=== PATIENT | male | born 1940 | race Caucasian/White ===

== ENCOUNTER 2017-04-04 01:47 | Inpatient (IN) | payer MEDICARE, MEDICAID ==
[~2017-04-04] VITALS: Ht 177.8 cm; Wt 84.7 kg
[~2017-04-04 01:47] MED LIST: AMIT25TA PO; AMLO10TA2 PO; ATOR40TA78 PO; BENA40TA2 PO; BUDE10.2 INH; CLON2TAB16 PO; ESOM40CA PO; FLUT1DIS3 INH; HYDR25TA6 PO; METF100010 PO; MONT10TA6 PO; TRAM50TA2 PO
[2017-04-04] MEDS ORDERED: hydrALAzine 20 MG/ML, 1ML ONE ×2 (01:53→02:21)
[2017-04-04] MEDS ORDERED: methylPREDNISolone SOD SUCC 125 MG/2 ML ONE (01:53)
[2017-04-04] MEDS ORDERED: ALBUTEROL/IPRATROPIUM 2.5MG/0.5MG, 3 ML ONE (01:56)
[2017-04-04] MEDS ORDERED: methylPREDNISolone SOD SUCC 125 MG/2 ML IVP ONE (02:00)
[2017-04-04] MEDS ORDERED: hydrALAzine 20 MG/ML, 1ML IV ONE ×2 (02:00→02:30)
[2017-04-04] MEDS ORDERED: ALBUTEROL SULFATE 2.5 MG/3 ML NPPB SCH (02:00)
[2017-04-04 02:18] LABS: HEMOGLOBIN 16.5 g/dL (13.7-18.0); WHITE BLOOD COUNT 12.4 x10^3/uL (3.4-10)
[2017-04-04 02:31] LABS: ASPARTATE AMINO TRANSFERASE 51 U/L (15-37); BLOOD UREA NITROGEN 15 mg/dL (7-18)
[2017-04-04 02:36] LABS: IS PT STATUS REG ER OR PRE ER? YES
[2017-04-04] MEDS ORDERED: hydrALAzine 20 MG/ML, 1ML IVPush PRN (03:30)
[2017-04-04] MEDS ORDERED: HYDROmorphone 2 MG/ML, 1ML IVPush PRN (03:30)
[2017-04-04] MEDS ORDERED: ONDANSETRON 2MG/ML, 2ML IVPush PRN ×2 (03:30)
[2017-04-04] MEDS ORDERED: LEVOFLOXACIN/PMX 500MG/100ML 100 ML ONE (04:04)
[2017-04-04] MEDS: LEVOFLOXACIN/PMX 500MG/100ML 100 ML IVPB SCH (04:08)
[2017-04-04 04:21] LABS: IS PT STATUS REG ER OR PRE ER? YES
[2017-04-04 06:00] VITALS: BP 135/89
[2017-04-04] MEDS: FUROSEMIDE 20 MG/2 ML IVPush SCH ×2 (06:26→16:32)
[2017-04-04] MEDS: ENOXAPARIN 40 MG/0.4 ML SQ SCH (06:27)
[2017-04-04] MEDS: ASPIRIN 81 MG TABLET EC PO SCH (06:27)
[2017-04-04 07:00] VITALS: BP 144/85
[2017-04-04] MEDS: INSULIN ASPART 100 UNITS/ML, PEN SQ-INSULIN SCH ×4 (07:00→21:04)
[2017-04-04 08:06] LABS: IS PT STATUS REG ER OR PRE ER? NO
[2017-04-04] MEDS ORDERED: FAMOTIDINE 20 MG TABLET ONE (08:28)
[2017-04-04] MEDS: FAMOTIDINE 20 MG/2 ML IVPush SCH ×2 (08:42→21:05)
[2017-04-04] MEDS: methylPREDNISolone SOD SUCC 125 MG/2 ML IVPush SCH ×3 (08:42→21:05)
[2017-04-04] MEDS: SPIRONOLACTONE 25 MG TABLET PO SCH (08:42)
[2017-04-04] MEDS: SODIUM CHLORIDE FLUSH 10ML SYR IVF SCH ×2 (08:43→21:05)
[2017-04-04 12:30] VITALS: BP 138/82
[2017-04-04 13:24] LABS: IS PT STATUS REG ER OR PRE ER? NO
[2017-04-04] MEDS: LORazepam 2 MG/ML, 1ML IVPush PRN (16:29)
[2017-04-04] MEDS ORDERED: ALBUTEROL/IPRATROPIUM 2.5MG/0.5MG, 3 ML NPPB PRN (18:00)
[2017-04-04] MEDS ORDERED: METOPROLOL TARTRATE 50 MG TABLET PO SCH (18:30)
[2017-04-04] MEDS ORDERED: ACETAMINOPHEN 325 MG TABLET PO PRN (19:30)
[2017-04-04 20:00] VITALS: BP 167/90
[2017-04-04] MEDS: METOPROLOL TARTRATE 50 MG TABLET PO SCH (21:05)
[2017-04-04] MEDS: ALBUTEROL/IPRATROPIUM 2.5MG/0.5MG, 3 ML NPPB SCH ×2 (22:00→22:40)
[2017-04-05 02:00] VITALS: BP 153/89
[2017-04-05] MEDS: methylPREDNISolone SOD SUCC 125 MG/2 ML IVPush SCH ×2 (03:06→08:01)
[2017-04-05] MEDS: LEVOFLOXACIN/PMX 500MG/100ML 100 ML IVPB SCH (03:06)
[2017-04-05] MEDS: LORazepam 2 MG/ML, 1ML IVPush PRN (04:50)
[2017-04-05 05:14] LABS: HEMATOCRIT 46.9 % (39.2-51.8); HEMOGLOBIN 15.4 g/dL (13.7-18.0); WHITE BLOOD COUNT 14.7 x10^3/uL (3.4-10)
[2017-04-05 05:50] LABS: BLOOD UREA NITROGEN 28 mg/dL (7-18)
[2017-04-05] MEDS ORDERED: METOPROLOL TARTRATE 25 MG TABLET PO SCH (06:00)
[2017-04-05] MEDS: ENOXAPARIN 40 MG/0.4 ML SQ SCH (06:10)
[2017-04-05] MEDS: ASPIRIN 81 MG TABLET EC PO SCH (06:10)
[2017-04-05] MEDS: METOPROLOL TARTRATE 50 MG TABLET PO SCH (06:10)
[2017-04-05] MEDS: FUROSEMIDE 20 MG/2 ML IVPush SCH (06:10)
[2017-04-05] MEDS: ALBUTEROL/IPRATROPIUM 2.5MG/0.5MG, 3 ML NPPB SCH (06:55)
[2017-04-05 07:00] VITALS: BP 159/101
[2017-04-05 08:00] VITALS: BP 174/110
[2017-04-05] MEDS: FAMOTIDINE 20 MG/2 ML IVPush SCH (08:00)
[2017-04-05] MEDS: SPIRONOLACTONE 25 MG TABLET PO SCH (08:02)
[2017-04-05] MEDS: SODIUM CHLORIDE FLUSH 10ML SYR IVF SCH (08:03)
[2017-04-05] MEDS: INSULIN ASPART 100 UNITS/ML, PEN SQ-INSULIN SCH (08:54)
== END 2017-04-05 11:00 | disposition left against medical advice (07) | DRG 291 ==
LOC: ED 02:49 → EDIP 03:01 → 4EST 05:25
PROVIDERS: ADMIT Family Medicine; ATTEND Family Medicine
DX: I11.0 Hypertensive heart disease with heart failure (principal); J96.01 Acute respiratory failure with hypoxia; J44.1 Chronic obstructive pulmonary disease with (acute) exacerbation; I48.2 Chronic atrial fibrillation; E11.9 Type 2 diabetes mellitus without complications; I50.33 Acute on chronic diastolic (congestive) heart failure; Z53.21 Procedure and treatment not carried out due to patient leaving prior to being seen by health care provider; Z60.2 Problems related to living alone; Z90.49 Acquired absence of other specified parts of digestive tract
CPT/HCPCS: 36415; 71010; 80048; 80053; 80061; 82962; 83036; 83605; 83735; 83880; 84145; 84443; 84484; 85025; 87040; 87324; 93005; 93306; 94640; 96374; 96375; J1650; J1815; J1956; J7620; J0360; J1940; J2060; J2930; S0028

== ENCOUNTER 2018-06-01 15:31 | Emergency (ER) | payer MEDICARE, MEDICAID ==
[~2018-06-01] VITALS: Ht 180.3 cm; Wt 70.0 kg
[~2018-06-01 15:31] MED LIST changes: -AMLO10TA2 PO; +AMLO10TA8 PO; -BENA40TA2 PO; +BENA40TA3 PO
[2018-06-01] MEDS ORDERED: BUSP5TAB2 PO (15:54)
--- NOTE | 2018-06-01 16:01 | NUR ---
PT PLACED ON HEART MONITOR, BP CUFF, PULSE OX. MORRIS WARMER PLACED, WARM BLANKET PROVIDED. CALL LIGHT WITHIN REACH, PT OFFERED WARM BLANKET.
[2018-06-01] MEDS ORDERED: hydrOXyzine 50MG TABLET ONE (16:13)
--- NOTE | 2018-06-01 16:20 | NUR ---
MED GIVEN PER ERP ORDER. CONTINUE TO MONITOR.
[2018-06-01 17:40] VITALS: BP 154/85
--- NOTE | 2018-06-01 17:41 | NUR ---
PT DISCHARGED HOME, WILL CALL [facility] FOR TAXI RIDE HOME.
== END 2018-06-01 17:42 | disposition home or self-care (01) ==
LOC: ED 16:11
DX: F41.1 Generalized anxiety disorder (principal); I48.91 Unspecified atrial fibrillation; J44.9 Chronic obstructive pulmonary disease, unspecified; I10 Essential (primary) hypertension; E11.9 Type 2 diabetes mellitus without complications; R10.84 Generalized abdominal pain
CPT/HCPCS: 99284; Q0177

== ENCOUNTER 2018-06-25 21:03 | Emergency (ER) | payer MEDICARE, MEDICAID ==
[~2018-06-25] VITALS: Ht 180.3 cm; Wt 70.0 kg
[~2018-06-25 21:03] MED LIST changes: +BUSP5TAB2 PO
--- NOTE | 2018-06-25 22:06 | NUR ---
PT RESTING ON GURNEY. RR EVEN AND UNLABORED. PT ON CONT SPO2, BP, AND CARDIAC MONTIOR. PT DENIES NEEDS ATT. AWAITING LAB RESULTS
[2018-06-25 22:08] LABS: BASOPHILS # (AUTO) 0.02 x10^3/uL (0-0.1); BASOPHILS % (AUTO) 0 % (0-1); EOSINOPHILS # (AUTO) 0.17 x10^3/uL (0-0.4); EOSINOPHILS % (AUTO) 1 % (1-7); LYMPHOCYTES # (AUTO) 0.41 x10^3/uL (1-3.4); LYMPHOCYTES % (AUTO) 3 % (22-44); MD NO; MEAN CORPUSCULAR HEMOGLOBIN 30.5 pg (27.5-34.5); MEAN CORPUSCULAR HGB CONC 33.3 g/dL (33.2-36.2); MEAN CORPUSCULAR VOLUME 91.6 fL (81-97); MEAN PLATELET VOLUME 7.5 fL (7.4-10.4); MONOCYTES # (AUTO) 0.89 x10^3/uL (0.2-0.8); MONOCYTES % (AUTO) 7 % (2-9); NEUTROPHILS # (AUTO) 10.48 x10^3/uL (1.8-6.8); NEUTROPHILS % (AUTO) 88 % (42-75); PLATELET COUNT 275 x10^3/uL (130-400); RED BLOOD COUNT 4.98 x10^6/uL (4.38-5.82)
[2018-06-25 22:20] LABS: ALANINE AMINOTRANSFERASE 28 U/L (12-78); ALBUMIN 3.3 g/dL (3.4-5.0); ANION GAP 6 mmol/L (5-15); CALCIUM 8.3 mg/dL (8.5-10.1); CHLORIDE 110 mmol/L (98-107); CREATININE 0.69 mg/dL (0.7-1.3)
[2018-06-25 22:24] VITALS: BP 153/101
[2018-06-25 22:25] LABS: ALKALINE PHOSPHATASE 77 U/L (45-117); BILIRUBIN,TOTAL 0.6 mg/dL (0.2-1.0); TOTAL PROTEIN 6.2 g/dL (6.4-8.2); TROPONIN I < 0.015 ng/mL (0.000-0.045)
== END 2018-06-25 22:57 | disposition home or self-care (01) ==
LOC: ED 21:36
DX: I48.2 Chronic atrial fibrillation (principal); R05 Cough; J44.9 Chronic obstructive pulmonary disease, unspecified; I10 Essential (primary) hypertension; E11.9 Type 2 diabetes mellitus without complications
CPT/HCPCS: 36415; 71045; 80053; 84484; 85025; 93005; 99284

== ENCOUNTER 2019-04-17 22:32 | Inpatient (IN) | payer MEDICARE, MEDICAID ==
[~2019-04-17] VITALS: Ht 182.9 cm; Wt 76.2 kg
[2019-04-17] MEDS ORDERED: ONDANSETRON ODT 4 MG PO PRN (23:00)
[2019-04-17] MEDS ORDERED: BISACODYL 10 MG SUPP PR PRN (23:00)
[2019-04-17] MEDS ORDERED: DOCUSATE 100 MG CAPSULE PO PRN (23:00)
[2019-04-17] MEDS ORDERED: POLYETHYLENE GLYCOL 17 GM PACKET PO PRN (23:00)
[2019-04-17] MEDS ORDERED: ACETAMINOPHEN 325 MG TABLET PO PRN (23:00)
[2019-04-17] MEDS ORDERED: HYDR25TA6 PO (23:10)
[2019-04-17] MEDS ORDERED: ESOM40CA PO (23:10)
[2019-04-17] MEDS ORDERED: SERT50TA28 PO (23:10)
[2019-04-17] MEDS ORDERED: AMLO10TA8 PO (23:10)
[2019-04-17] MEDS ORDERED: TRAZ50TA66 PO (23:10)
[2019-04-17] MEDS ORDERED: METO50TA82 PO (23:10)
[2019-04-17] MEDS ORDERED: ATOR40TA78 PO (23:10)
[2019-04-17] MEDS ORDERED: GABA300C10 PO (23:10)
[2019-04-17] MEDS ORDERED: MONT10TA9 PO (23:10)
[2019-04-17] MEDS ORDERED: FENO145T32 PO (23:10)
[2019-04-17] MEDS ORDERED: RIVA20TA PO (23:10)
[2019-04-17] MEDS ORDERED: BENA40TA3 PO (23:10)
[2019-04-17] MEDS ORDERED: FLUT1DIS3 INH (23:10)
[2019-04-17] MEDS ORDERED: BUSP7.5T3 PO (23:10)
[2019-04-18 01:14] VITALS: BP 139/84
[2019-04-18] MEDS ORDERED: PLEASE ENTER HEIGHT AND WEIGHT MC SCH (01:30)
[2019-04-18 02:33] LABS: MICROSCOPIC NOT IND
[2019-04-18 02:38] LABS: CULTURE INDICATED? NO
[2019-04-18 06:08] LABS: ANION GAP 7 mmol/L (5-15); CALCIUM 7.9 mg/dL (8.5-10.1); CHLORIDE 116 mmol/L (98-107)
[2019-04-18 06:09] LABS: BASOPHILS # (AUTO) 0.04 x10^3/uL (0-0.1); BASOPHILS % (AUTO) 0 % (0-1); EOSINOPHILS # (AUTO) 0.31 x10^3/uL (0-0.4); EOSINOPHILS % (AUTO) 4 % (1-7); LYMPHOCYTES # (AUTO) 0.56 x10^3/uL (1-3.4); LYMPHOCYTES % (AUTO) 7 % (22-44); MD NO; MEAN CORPUSCULAR HEMOGLOBIN 26.7 pg (27.5-34.5); MEAN CORPUSCULAR HGB CONC 32.1 g/dL (33.2-36.2); MEAN PLATELET VOLUME 7.2 fL (7.4-10.4); MONOCYTES % (AUTO) 10 % (2-9); NEUTROPHILS % (AUTO) 80 % (42-75); PLATELET COUNT 284 x10^3/uL (130-400); RED BLOOD COUNT 4.77 x10^6/uL (4.38-5.82); RED CELL DISTRIBUTION WIDTH 18.1 % (9.4-14.8)
[2019-04-18 06:35] LABS: CHOL/HDL RATIO 2.3; CHOLESTEROL, TOTAL 132 mg/dL (140-239); CREATININE 0.56 mg/dL (0.7-1.3); FREE T4 (FREE THYROXINE) 0.85 ng/dL (0.76-1.46); HDL CHOL % 43 % (26-37); HDL CHOLESTEROL (DIRECT) 57 mg/dL (40-60); LDL CHOLESTEROL,CALCULATED 66 mg/dL (54-169); LDL/HDL RATIO 1.2 (0.5-3.0); TRIGLYCERIDES 45 mg/dL (50-200); VLDL CHOLESTEROL 9 mg/dL (0-25)
[2019-04-18 07:53] VITALS: BP 136/77
[2019-04-18] MEDS ORDERED: LORazepam 0.5MG TABLET PO PRN (14:00)
[2019-04-18] MEDS: BUSPIRONE 5 MG TABLET PO SCH ×2 (15:25→20:22)
[2019-04-18] MEDS: GABAPENTIN 300 MG CAPSULE PO SCH ×2 (15:25→20:23)
[2019-04-18] MEDS ORDERED: ALBUTEROL SULFATE 2.5 MG/3 ML NPPB PRN (16:30)
[2019-04-18 19:41] VITALS: BP 151/97
[2019-04-18] MEDS: METOPROLOL TARTRATE 50 MG TABLET PO SCH (20:22)
[2019-04-18] MEDS: DONEPEZIL 5 MG TABLET PO SCH (20:23)
[2019-04-18] MEDS: ATORVASTATIN 40 MG TABLET PO SCH (20:23)
[2019-04-19] MEDS: OMEPRAZOLE 20 MG CAPSULE.DR PO SCH (06:26)
[2019-04-19 07:13] VITALS: BP 139/73
[2019-04-19] MEDS: GABAPENTIN 300 MG CAPSULE PO SCH ×3 (08:28→20:11)
[2019-04-19] MEDS: AMLODIPINE 10 MG TAB PO SCH (08:29)
[2019-04-19] MEDS: BENAZEPRIL 20 MG TABLET PO SCH (08:29)
[2019-04-19] MEDS: RIVAROXABAN 20 MG TABLET PO SCH (08:29)
[2019-04-19] MEDS: BUSPIRONE 5 MG TABLET PO SCH ×3 (08:30→20:11)
[2019-04-19] MEDS: FENOFIBRATE 145 MG TABLET PO SCH (08:30)
[2019-04-19] MEDS: METOPROLOL TARTRATE 50 MG TABLET PO SCH ×2 (08:30→20:12)
[2019-04-19] MEDS ORDERED: DONE5TAB52 PO (16:38)
[2019-04-19 19:47] VITALS: BP 116/75
[2019-04-19] MEDS: ATORVASTATIN 40 MG TABLET PO SCH (20:11)
[2019-04-19] MEDS: DONEPEZIL 5 MG TABLET PO SCH (20:11)
[2019-04-20 06:30] VITALS: BP 147/71
[2019-04-20] MEDS: OMEPRAZOLE 20 MG CAPSULE.DR PO SCH (06:33)
[2019-04-20 07:15] VITALS: BP 141/76
[2019-04-20] MEDS: BUSPIRONE 5 MG TABLET PO SCH (08:42)
[2019-04-20] MEDS: METOPROLOL TARTRATE 50 MG TABLET PO SCH (08:42)
[2019-04-20] MEDS: FENOFIBRATE 145 MG TABLET PO SCH (08:43)
[2019-04-20] MEDS: GABAPENTIN 300 MG CAPSULE PO SCH (08:43)
[2019-04-20] MEDS: RIVAROXABAN 20 MG TABLET PO SCH (08:43)
[2019-04-20] MEDS: AMLODIPINE 10 MG TAB PO SCH (08:43)
[2019-04-20] MEDS: BENAZEPRIL 20 MG TABLET PO SCH (08:43)
== END 2019-04-20 12:55 | disposition home or self-care (01) | DRG 57 ==
LOC: UNDOADMIN 04-18 01:03 → 3E 04-18 01:03
PROVIDERS: ADMIT Psychiatry & Neurology Psychosomatic Medicine; ATTEND Psychiatry & Neurology Psychosomatic Medicine
DX: G30.8 Other Alzheimer's disease (principal); F02.81 Dementia in other diseases classified elsewhere, unspecified severity, with behavioral disturbance; D68.69 Other thrombophilia; I48.20 Chronic atrial fibrillation, unspecified; R45.851 Suicidal ideations; F31.9 Bipolar disorder, unspecified; E78.1 Pure hyperglyceridemia; E78.5 Hyperlipidemia, unspecified; F10.21 Alcohol dependence, in remission; Y90.9 Presence of alcohol in blood, level not specified; F41.1 Generalized anxiety disorder; G47.00 Insomnia, unspecified; G89.29 Other chronic pain; I11.0 Hypertensive heart disease with heart failure; I50.9 Heart failure, unspecified; J44.9 Chronic obstructive pulmonary disease, unspecified; K21.9 Gastro-esophageal reflux disease without esophagitis; Z79.01 Long term (current) use of anticoagulants; Z79.899 Other long term (current) drug therapy; Z91.14 Patient's other noncompliance with medication regimen
CPT/HCPCS: 36415; 71045; 80048; 80061; 81003; 82140; 82607; 84439; 84443; 85025; 93005

== ENCOUNTER 2019-07-04 12:41 | Emergency (ER) | payer MEDICARE, MEDICAID ==
[~2019-07-04] VITALS: Ht 180.3 cm; Wt 76.7 kg
[~2019-07-04 12:41] MED LIST changes: +BUSP7.5T3 PO; +DONE5TAB52 PO; +FENO145T32 PO; +GABA300C10 PO; +METO50TA82 PO; +MONT10TA11 PO; +RIVA20TA PO; +SERT50TA28 PO; +TRAZ50TA66 PO
[2019-07-04 13:40] VITALS: BP 163/72
--- NOTE | 2019-07-04 15:43 | NUR ---
Medicated per emar with home dose of atarax Provided with taxi voucher Provided with R/[facility] clinic phone number and adress for pcp f/u
--- NOTE | 2019-07-04 16:04 | NUR ---
discharged home after post medication assessment
--- NOTE | 2019-07-04 16:34 | NUR ---
RECEIVED CALLED FROM PATIENT'S C[facility] (JERRY) (CARED FOR BY [facility]) D/T HIS DEMENTIA. SHE REPORTS PATIENT HAS HOME NURSE WHO ADMINISTERS HIS MEDS TO HIM. SHE WILL ASSURE HE DOES NOT FILL THE ATARAX SCRIPT SO HE DOESN'T ACCIDENTILLY DOUBLE HIS ATARAX SHE WOULD LIKE IT KNOWN THAT HE HAS DEMENTIA AND TO CALL [facility] WITH ANY QUESTIONS
== END 2019-07-04 16:11 | disposition home or self-care (01) ==
LOC: ED 16:00
DX: F41.1 Generalized anxiety disorder (principal); I10 Essential (primary) hypertension; E11.9 Type 2 diabetes mellitus without complications; J44.9 Chronic obstructive pulmonary disease, unspecified; I48.91 Unspecified atrial fibrillation
CPT/HCPCS: 93005; 99283; Q0177